=== PATIENT | female | born 1955 | race Caucasian/White ===

== ENCOUNTER 2025-09-09 12:39 | Emergency (ER) | payer MEDICARE, BC ==
[2025-09-09] MEDS ORDERED: Sodium Chloride 0.9% 10 ML Syringe FLUSH PRN (13:00)
[2025-09-09] MEDS: Metoprolol Tartrate 5 MG/5 ML SDV IVPUSH ONE (13:10)
[2025-09-09 13:40] LABS: A/G RATIO 1.0; ALANINE AMINOTRANSFERASE,ALT 15 U/L (14-59); ASPARTATE AMNIOTRANSFERASE,AST 18 U/L (15-37); BILIRUBIN TOTAL 0.6 mg/dL (0.2-1.0); BLOOD UREA NITROGEN,BUN 18 mg/dL (7-18); CARBON DIOXIDE,CO2 23 mmol/L (21-32); CHLORIDE,CL 104 mmol/L (98-107); CREATININE 1.08 mg/dL (0.55-1.02); GLUCOSE RANDOM 110 mg/dL (70-99); POTASSIUM,K 3.9 mmol/L (3.5-5.1); PROTEIN TOTAL,TP 7.9 g/dL (6.4-8.2); SODIUM,NA 141 mmol/L (136-145)
[2025-09-09 13:41] LABS: ESTIMATED GFR 56 mL/min (>=60)
== END 2025-09-09 13:50 | disposition home or self-care (01) ==
LOC: DL.ED 12:39
DX: I48.91 Unspecified atrial fibrillation (principal); Z86.16 Personal history of COVID-19; Z79.899 Other long term (current) drug therapy; Z79.01 Long term (current) use of anticoagulants
CPT/HCPCS: 36415; 80053; 83735; 96374; 99284; J0616